=== PATIENT | male | born 1950 | race Hispanic/Latino ===

== ENCOUNTER 2017-03-25 12:39 | Emergency (ER) | payer MEDICARE ==
[~2017-03-25] VITALS: Ht 162.6 cm; Wt 75.0 kg
[~2017-03-25 12:39] MED LIST: LISI20TA5; NAPROSYN500 MG OR; PENICILLN VK500 MG PO; ROCEPHIN 22 GM/VIAL IV; ULTRAM50 MG PO
[2017-03-25 14:04] LABS: PROTHROMBIN TIME 10.4 SECONDS (9.0-12.5)
[2017-03-25 14:11] LABS: HEMATOCRIT 41.7 % (39.0-50.0); HEMOGLOBIN 14.3 g/dl (14.0-18.0); IMMATURE GRANULOCYTES 0.1 % (0.0-1.0); MEAN CELL VOLUME 94.3 fL CALC (80.0-100.0); MEAN CORPUSCULAR HGB 32.4 pG CALC (26.0-32.0); MEAN CORPUSCULAR HGB CONC 34.3 g/L CALC (32.0-36.0); NEUT# 4.39 thou/uL (1.82-7.42); RED BLOOD COUNT 4.42 mill/uL (4.70-6.10); RED CELL DISTRI WIDTH 12.4 % (11.5-15.5)
[2017-03-25 14:45] VITALS: BP 169/81
== END 2017-03-25 14:45 | disposition home or self-care (01) ==
LOC: ED 12:39
PROVIDERS: Emergency Medicine
DX: R04.0 Epistaxis (principal)

== ENCOUNTER 2019-12-10 | Emergency (ER) | payer MEDICARE ==
[2019-12-10] MEDS ORDERED: CYCLOBENZAPR5 MG PO (18:22)
== END 2019-12-10 19:29 | disposition home or self-care (01) ==
DX: M54.2 Cervicalgia (principal); F17.210 Nicotine dependence, cigarettes, uncomplicated

== ENCOUNTER 2022-06-14 23:04 | Emergency (ER) | payer MEDICARE, MEDICAID ==
[~2022-06-14] VITALS: Ht 162.6 cm; Wt 75.0 kg
[~2022-06-14 23:04] MED LIST changes: +CYCLOBENZAPR5 MG PO
[2022-06-14 23:23] VITALS: BP 179/62
[2022-06-14 23:30] VITALS: BP 167/83
[2022-06-14 23:46] VITALS: BP 146/108
[2022-06-14 23:50] LABS: HEMATOCRIT 45.6 % (39.0-50.0); HEMOGLOBIN 15.5 g/dl (14.0-18.0); IMMATURE GRANULOCYTES 0.1 % (0.0-5.0); MEAN CELL VOLUME 96.4 fL CALC (80.0-100.0); MEAN CORPUSCULAR HGB 32.8 pG CALC (26.0-32.0); NEUT# 6.09 thou/uL (1.82-7.42); RED BLOOD COUNT 4.73 mill/uL (4.70-6.10); RED CELL DISTRI WIDTH 12.9 % (11.5-15.5)
[2022-06-15 00:05] LABS: ALBUMIN 4.7 g/dL (3.2-5.0); ALKALINE PHOSPHATASE 80 u/l (38-126); ANION GAP 15 (6-22 (CALC)); BILIRUBIN, TOTAL 0.8 mg/dL (0.0-1.4); BUN 22 mg/dL (8-23); BUN/CREATININE RATIO 20 (12-20 (CALC)); CARBON DIOXIDE 22 mmol/l (22-30); CHLORIDE 103 mmol/l (95-108); CREATININE 1.1 mg/dL (0.7-1.3); GFR FOR AFR.AMER. > 60 ML/MIN (>=60 (CALC)); GFR OTHER RACES > 60 ML/MIN (>=60 (CALC)); POTASSIUM 4.5 mmol/l (3.5-5.1); SGOT/AST 34 u/l (19-48); SODIUM 135 mmol/l (137-146); TOTAL PROTEIN 8.3 g/dL (6.3-8.2)
[2022-06-15] MEDS ORDERED: NAPROXEN500 MG PO (01:05)
[2022-06-15] MEDS ORDERED: CYCLOBENZAPRINE10 MG PO (01:05)
[2022-06-15 01:11] VITALS: BP 167/83
== END 2022-06-15 01:18 | disposition home or self-care (01) ==
LOC: ED 23:04
PROVIDERS: Emergency Medicine
DX: M54.2 Cervicalgia (principal); F17.200 Nicotine dependence, unspecified, uncomplicated

== ENCOUNTER 2024-10-23 10:32 | Inpatient (IN) | payer MEDICARE, MEDICAID ==
[~2024-10-23] VITALS: Ht 162.6 cm; Wt 77.0 kg
[2024-10-23] VITALS (36 sets, daily range): BP systolic 152–208; BP diastolic 63–107
[~2024-10-23 10:32] MED LIST changes: +CYCLOBENZAPRINE10 MG PO; +NAPROXEN500 MG PO
[2024-10-23 11:07] LABS: BASO% 0.3 % (0-3); EOS% 2.1 % (0-8); HEMATOCRIT 48.1 % (39.0-50.0); HEMOGLOBIN 16.1 g/dl (14.0-18.0); IMMATURE GRANULOCYTES 0.1 % (0.0-5.0); LYMPH% 30.8 % (15-41); MEAN CELL VOLUME 94.5 fL CALC (80.0-100.0); MEAN CORPUSCULAR HGB 31.6 pG CALC (26.0-32.0); MEAN CORPUSCULAR HGB CONC 33.5 g/dL CAL (32.0-36.0); MONO% 7.1 % (2-13); NEUT# 4.65 thou/uL (1.82-7.42); NEUT% 59.6 % (42-76); RED BLOOD COUNT 5.09 mill/uL (4.70-6.10); RED CELL DISTRI WIDTH 12.3 % (11.5-15.5)
[2024-10-23 11:29] LABS: ALBUMIN 4.3 g/dL (3.2-5.0); BILIRUBIN, TOTAL 0.7 mg/dL (0.2-1.3); CREATININE 0.8 mg/dL (0.7-1.3); POTASSIUM 4.1 mmol/l (3.5-5.1); TOTAL PROTEIN 7.3 g/dL (6.3-8.2)
[2024-10-23] MEDS ORDERED: hydrALAZINE HCL 20 MG/ML VIAL(1 ML) IV ONE (11:55)
[2024-10-23] MEDS ORDERED: KETOROLAC TROMETHAMINE 15 MG/ML SDV IV ONE (11:55)
[2024-10-23 12:34] LABS: URINE BILIRUBIN - DIPSTICK Negative (NEGATIVE); URINE BLOOD DIPSTICK Negative (NEGATIVE); URINE GLUCOSE - DIPSTICK 500 mg/dL (NEGATIVE); URINE KETONE Negative (NEGATIVE); URINE LEUK ESTERASE Negative (NEGATIVE); URINE NITRITE - DIPSTICK Negative (Negative); URINE PH 6.5 (4.5-8.0); URINE PROTEIN - DIPSTICK Negative (NEG-TRACE)
[2024-10-23 12:59] LABS: URINE COLOR Yellow
[2024-10-23] MEDS ORDERED: ISOVUE-300 (Iopamidol) 100 ML SDV IV ONE (14:00)
[2024-10-23] MEDS ORDERED: Iopamidol 370 (Isovue) 76% 100 ML SDV IV ONE (14:00)
[2024-10-23] MEDS ORDERED: MORPHINE SULFATE 4 MG/ML VIAL IV ONE (14:35)
[2024-10-23] MEDS ORDERED: CLOPIDOGREL BISULFATE 75 MG/TAB TAB PO ONE (18:45)
[2024-10-23] MEDS ORDERED: ASPIRIN 81 MG/TAB PO ONE (18:45)
[2024-10-23] MEDS ORDERED: ATORVASTATIN CALCIUM 40 MG/TAB PO SCH (21:00)
[2024-10-23] MEDS ORDERED: ENOXAPARIN SODIUM 40 MG/0.4 ML SYR SC SCH (21:00)
[2024-10-23] MEDS ORDERED: INSULIN LISPRO 100 UNITS/ML ML SC SCH (21:00)
[2024-10-23] MEDS ORDERED: DEXTROSE 250 ML IV PRN (22:00)
[2024-10-23] MEDS ORDERED: MORPHINE SULFATE 4 MG/ML VIAL IV PRN (22:00)
[2024-10-23] MEDS ORDERED: MAGNESIUM HYDROXIDE 30 ML UDC PO PRN (22:00)
[2024-10-23] MEDS ORDERED: ACETAMINOPHEN 325 MG/TAB PO PRN (22:00)
[2024-10-23] MEDS ORDERED: hydrALAZINE HCL 20 MG/ML VIAL(1 ML) IV PRN (22:00)
[2024-10-23] MEDS ORDERED: SODIUM CHLORIDE 0.9% 1,000 ML IV PRN (22:00)
[2024-10-24] VITALS (42 sets, daily range): BP systolic 135–213; BP diastolic 49–123
[2024-10-24 05:53] LABS: ALBUMIN 3.8 g/dL (3.2-5.0); BILIRUBIN, TOTAL 0.5 mg/dL (0.2-1.3); CHOLESTEROL HDL RATIO 3.8 (<4.4 (CALC)); CREATININE 0.7 mg/dL (0.7-1.3); MAGNESIUM 2.5 mg/dL (1.6-2.3); POTASSIUM 4.1 mmol/l (3.5-5.1); TOTAL PROTEIN 6.7 g/dL (6.3-8.2)
[2024-10-24 06:06] LABS: BASO% 0.3 % (0-3); EOS% 3.1 % (0-8); HEMATOCRIT 46.3 % (39.0-50.0); HEMOGLOBIN 15.9 g/dl (14.0-18.0); LYMPH% 28.7 % (15-41); MEAN CELL VOLUME 93.7 fL CALC (80.0-100.0); MEAN CORPUSCULAR HGB 32.2 pG CALC (26.0-32.0); MEAN CORPUSCULAR HGB CONC 34.3 g/dL CAL (32.0-36.0); MONO% 8.4 % (2-13); NEUT# 4.44 thou/uL (1.82-7.42); NEUT% 59.5 % (42-76); RED BLOOD COUNT 4.94 mill/uL (4.70-6.10); RED CELL DISTRI WIDTH 12.6 % (11.5-15.5)
[2024-10-24] MEDS ORDERED: CLOPIDOGREL BISULFATE 75 MG/TAB TAB PO SCH (09:00)
[2024-10-24] MEDS ORDERED: ASPIRIN 81 MG/TAB PO SCH (09:00)
[2024-10-24 11:49] LABS: C-REACTIVE PROTEIN < 0.5 mg/dL (0-0.9)
[2024-10-24] MEDS ORDERED: KETOROLAC TROMETHAMINE 15 MG/ML SDV IV PRN (13:40)
[2024-10-25] VITALS (37 sets, daily range): BP systolic 127–204; BP diastolic 49–132
[2024-10-25 05:32] LABS: ALBUMIN 3.3 g/dL (3.2-5.0); BILIRUBIN, TOTAL 0.7 mg/dL (0.2-1.3); CREATININE 0.7 mg/dL (0.7-1.3); MAGNESIUM 2.2 mg/dL (1.6-2.3); POTASSIUM 3.9 mmol/l (3.5-5.1)
[2024-10-25 05:34] LABS: BASO% 0.3 % (0-3); EOS% 2.5 % (0-8); HEMOGLOBIN 14.4 g/dl (14.0-18.0); IMMATURE GRANULOCYTES 0.1 % (0.0-5.0); LYMPH% 34.2 % (15-41); MEAN CELL VOLUME 94.8 fL CALC (80.0-100.0); MEAN CORPUSCULAR HGB 32.5 pG CALC (26.0-32.0); MEAN CORPUSCULAR HGB CONC 34.3 g/dL CAL (32.0-36.0); MONO% 7.8 % (2-13); NEUT# 3.75 thou/uL (1.82-7.42); NEUT% 55.1 % (42-76); RED BLOOD COUNT 4.43 mill/uL (4.70-6.10); RED CELL DISTRI WIDTH 12.4 % (11.5-15.5)
[2024-10-25] MEDS ORDERED: LOSARTAN Potassium 25 MG/TAB PO SCH (09:00)
[2024-10-25] MEDS ORDERED: hydrALAZINE HCL 20 MG/ML VIAL(1 ML) IV PRN (10:15)
[2024-10-25] MEDS ORDERED: LOSARTAN Potassium 50 MG/TAB PO ONE (18:10)
[2024-10-25] MEDS ORDERED: amLODIPine BESYLATE 5 MG/TAB PO SCH (18:10)
[2024-10-26] VITALS (34 sets, daily range): BP systolic 111–190; BP diastolic 42–148
[2024-10-26 06:22] LABS: BASO% 0.3 % (0-3); EOS% 2.5 % (0-8); HEMATOCRIT 42.9 % (39.0-50.0); HEMOGLOBIN 14.5 g/dl (14.0-18.0); IMMATURE GRANULOCYTES 0.1 % (0.0-5.0); LYMPH% 32.7 % (15-41); MEAN CELL VOLUME 93.9 fL CALC (80.0-100.0); MEAN CORPUSCULAR HGB 31.7 pG CALC (26.0-32.0); MEAN CORPUSCULAR HGB CONC 33.8 g/dL CAL (32.0-36.0); MONO% 8.5 % (2-13); NEUT# 3.82 thou/uL (1.82-7.42); NEUT% 55.9 % (42-76); RED BLOOD COUNT 4.57 mill/uL (4.70-6.10); RED CELL DISTRI WIDTH 12.5 % (11.5-15.5)
[2024-10-26 06:34] LABS: ALBUMIN 3.5 g/dL (3.2-5.0); BILIRUBIN, TOTAL 0.9 mg/dL (0.2-1.3); CREATININE 0.7 mg/dL (0.7-1.3); MAGNESIUM 2.1 mg/dL (1.6-2.3); TOTAL PROTEIN 6.2 g/dL (6.3-8.2)
[2024-10-26] MEDS ORDERED: LOSARTAN Potassium 50 MG/TAB PO SCH (09:00)
[2024-10-26] MEDS ORDERED: amLODIPine BESYLATE 5 MG/TAB PO SCH (09:00)
[2024-10-27] VITALS (16 sets, daily range): BP systolic 87–187; BP diastolic 46–82
[2024-10-27 05:39] LABS: HEMATOCRIT 41.8 % (39.0-50.0); HEMOGLOBIN 14.2 g/dl (14.0-18.0); MEAN CORPUSCULAR HGB 32.3 pG CALC (26.0-32.0); RED BLOOD COUNT 4.4 mill/uL (4.70-6.10); RED CELL DISTRI WIDTH 12.5 % (11.5-15.5)
[2024-10-27 05:55] LABS: ALBUMIN 3.4 g/dL (3.2-5.0); BILIRUBIN, TOTAL 0.6 mg/dL (0.2-1.3); CREATININE 0.9 mg/dL (0.7-1.3); MAGNESIUM 2.3 mg/dL (1.6-2.3); POTASSIUM 4.1 mmol/l (3.5-5.1); TOTAL PROTEIN 6.1 g/dL (6.3-8.2)
[2024-10-27] MEDS ORDERED: AMLODIPINE BESYL5 MG PO (12:30)
[2024-10-27] MEDS ORDERED: ATORVASTATIN CA40 MG PO (12:30)
[2024-10-27] MEDS ORDERED: PLAVIX75 MG PO (12:30)
[2024-10-27] MEDS ORDERED: ASPIRIN81 MG PO (12:31)
[2024-10-27] MEDS ORDERED: LOSARTAN POTASS50 MG PO (12:31)
[2024-10-27] MEDS ORDERED: CYANOCOBAL1000 MCG/M SC (12:33)
[2024-10-27] MEDS ORDERED: METFORMIN HCL500 M1 PO (12:36)
== END 2024-10-27 12:58 | disposition home or self-care (01) | DRG 64 ==
LOC: ED 10:32 → ED-I 19:23
PROVIDERS: Family Medicine; Internal Medicine; Psychiatry & Neurology Neurology; ADMIT Student in an Organized Health Care Education/Training Program; ATTEND Student in an Organized Health Care Education/Training Program
DX: I63.512 Cerebral infarction due to unspecified occlusion or stenosis of left middle cerebral artery (principal); G93.6 Cerebral edema; I63.532 Cerebral infarction due to unspecified occlusion or stenosis of left posterior cerebral artery; R29.700 NIHSS score 0; H53.8 Other visual disturbances; R51.9 Headache, unspecified; R42 Dizziness and giddiness; I10 Essential (primary) hypertension; E11.9 Type 2 diabetes mellitus without complications; F17.210 Nicotine dependence, cigarettes, uncomplicated; T46.5X6A Underdosing of other antihypertensive drugs, initial encounter; Z91.128 Patient's intentional underdosing of medication regimen for other reason; Z20.822 Contact with and (suspected) exposure to COVID-19; Z79.84 Long term (current) use of oral hypoglycemic drugs
CPT/HCPCS: J1650; J1815; Q9967